=== PATIENT | female | born 1960 | race Caucasian/White ===

== ENCOUNTER 2017-09-30 17:44 | Emergency (ER) | payer BC, OTHER ==
--- NOTE | 2017-09-30 18:11 | EDM.PDOC ---
ED HPI GENERAL MEDICAL PROBLEM - General Chief Complaint: Eye Problems Stated Complaint: ALLERGIC REACTION Time Seen by Provider: 09/30/17 18:10 Source of Information: Reports: Patient - History of Present Illness INITIAL COMMENTS - FREE TEXT/NARRATIVE: Patient is here for evaluation of discharge from both eyes. She states that today she was preparing supper and had been handling raw shrimp that had spices and onions. She did rub her eyes and states that she had some significant irritation and discharge after this. She did take a Zyrtec and it improved mildly. She denies any loss or change in vision. Denies any throat tightness or dyspnea. Patient has no known allergies to any of these things previously and does eat them frequently. - Related Data Allergies Allergy/AdvReac Type Severity Reaction Status Date / Time penicillin G Allergy Cannot Verified 09/30/17 17:55 Remember Home Meds: Home Meds Olopatadine [Patanol 0.1% Ophth Soln] 1 drop EYEBOTH BID PRN #1 bottle 09/30/17 [Rx] Past Medical History HEENT History: Reports: Allergic Rhinitis, Impaired Vision [employer] History: Reports: - Past Surgical History Female Surgical History: Reports: Hysterectomy Musculoskeletal Surgical History: Reports: Other (See Below) Other Musculoskeletal Surgeries/Procedures:: carpal tunnel bilateral Social & Family History - Tobacco Use Smoking Status *Q: Never Smoker Second Hand Smoke Exposure: No - Caffeine Use Caffeine Use: Reports: None - Recreational Drug Use Recreational Drug Use: No ED ROS GENERAL - Review of Systems Review Of Systems: See Below Constitutional: Reports: No Symptoms HEENT: Reports: Eye Discharge, Eye Pain, Glasses. Denies: Throat Pain, Throat Swelling Respiratory: Reports: No Symptoms Cardiovascular: Reports: No Symptoms Skin: Reports: No Symptoms ED EXAM GENERAL W FULL EYE - Physical Exam Exam: See Below Exam Limited By: No Limitations General Appearance: Alert, WD/WN Eye Exam: Bilateral Eye: Conjunctival Injection, PERRL, Other (Bilateral clear discharge. ) Visual Acuity (R) 20/: 25 Visual Acuity (L) 20/: 25 With Correction: No Eyelids: Bilateral: Erythema Conjunctiva & Sclera: Bilateral: Discharge (clear), Injected Cornea Exam: Bilateral: Normal Appearance Extraocular Movements: Bilateral: Intact Pupils: Normal Accommodation Ears: Normal External Exam, Normal TMs Throat/Mouth: Normal Inspection, Normal Oropharynx Course - Vital Signs Last Recorded V/S: Last Vital Signs Temp 98.4 F 09/30/17 17:49 Pulse 79 09/30/17 17:49 Resp 13 09/30/17 17:49 BP 159/87 H 09/30/17 17:49 Pulse Ox 98 09/30/17 17:49 - Re-Assessments/Exams Free Text/Narrative Re-Assessment/Exam: Bilateral eyes were irrigated with saline and ice packs applied, patient had significant improvement in her symptoms with this. Question if irritation versus allergic conjunctivitis. Will send her home with Patanol drops, she will also continue cool packs to eyes tonight. Advised patient if she should have any worsening symptoms or changes in vision that she will need to be reevaluated immediately. Follow up with her client experience specialist next week if not completely resolved. 09/30/17 19:18 Departure - Departure Time of Disposition: 19:11 Disposition: Home, Self-Care 01 Condition: Good Clinical Impression: Irritation of both eyes, Allergic conjunctivitis of both eyes - Discharge Information Prescriptions: Olopatadine [Patanol 0.1% Ophth Soln] 1 drop EYEBOTH BID PRN #1 bottle PRN Reason: Allergies Referrals: Toni Chau Jr, MD [Primary Care Provider] - Forms: ED Department Discharge
== END 2017-09-30 19:20 | disposition home or self-care (01) ==
LOC: JD.ED 17:44
DX: H10.13 Acute atopic conjunctivitis, bilateral (principal); Z88.0 Allergy status to penicillin
CPT/HCPCS: 99283

== ENCOUNTER 2023-09-24 17:03 | Emergency (ER) | payer OTHER ==
[2023-09-24] MEDS ORDERED: Metoclopramide 10 MG/2 ML SDV IVPUSH ONE (17:24)
[2023-09-24 17:53] LABS: BASOPHILS PERCENT AUTO 0.2 % (0.0-1.0); EOSINOPHILS PERCENT AUTO 0.1 % (0.0-6.0); HEMATOCRIT 37.5 % (37.0-47.0); HEMOGLOBIN 12.4 gm/dl (12.0-16.0); IMMATURE GRAN ABSOLUTE AUTO 0.07 K/mm3 (0.00-0.05); IMMATURE GRAN PERCENT AUTO 0.4 % (0.0-0.4); LYMPHOCYTES ABSOLUTE AUTO 1.5 K/mm3 (1.0-4.8); LYMPHOCYTES PERCENT AUTO 7.5 % (24.0-44.0); MEAN CORPUSCULAR HEMOGLOBIN 30.8 pg (28.0-32.0); MEAN CORPUSCULAR HGB CONC 33.1 g/dl (32.0-36.0); MEAN CORPUSCULAR VOLUME 93.1 fl (83.0-99.0); MEAN PLATELET VOLUME 9.4 fl (9.4-12.3); MONOCYTES ABSOLUTE AUTO 1.6 K/mm3 (0.0-0.8); MONOCYTES PERCENT AUTO 8.3 % (0.0-8.0); NEUTROPHILS ABSOLUTE AUTO 16.2 K/mm3 (1.8-7.7); NEUTROPHILS PERCENT AUTO 83.5 % (41.0-71.0); PLATELET COUNT,PLT 229 K/mm3 (150-400); RED BLOOD CELL COUNT 4.03 M/mm3 (4.10-5.30); WHITE BLOOD CELL COUNT,WBC 19.38 K/mm3 (3.9-11.3)
[2023-09-24 17:57] LABS: CORONAVIRUS COVID-19 NAA NEGATIVE (NEGATIVE); INFLUENZA A NAA NEGATIVE (NEGATIVE)
[2023-09-24] MEDS: Dextrose 5%-0.9% NaCl 1,000 ML IV SCH ×2 (18:09→21:04)
[2023-09-24 18:17] LABS: APPEARANCE,URINE SLT CLOUDY (Clear); BILIRUBIN,URINE 1+ (Negative); COLOR,URINE DARK YELLOW (Yellow); GLUCOSE,URINE NEGATIVE (Negative); KETONES,URINE TRACE (Negative); LEUKOCYTE ESTERASE,URINE TRACE (Negative); NITRITE,URINE POSITIVE (Negative); OCCULT BLOOD,URINE TRACE-INTACT (Negative); PROTEIN,URINE 1+ (Negative)
[2023-09-24 18:22] LABS: SLIDE REVIEW ABNORMAL SMEAR
[2023-09-24 18:23] LABS: A/G RATIO 0.6 (1-2); ALBUMIN 2.8 g/dl (3.4-5.0); ANION GAP 12.1 (5-15); BILIRUBIN TOTAL 2.1 mg/dL (0.2-1.0); BUN/CREATININE RATIO 17.5 (14-18); CALCIUM 8.9 mg/dL (8.5-10.1); CREATININE 0.8 mg/dL (0.55-1.02); EST CRCL DRUG DOSING (CG) 66.45 mL/min; MAGNESIUM 1.9 mg/dL (1.8-2.4); POTASSIUM,K 4.1 mEq/L (3.5-5.1); PROTEIN TOTAL,TP 7.7 g/dl (6.4-8.2); TSH 1.094 uIU/mL (0.358-3.74)
[2023-09-24 18:48] LABS: BACTERIA,URINE MANY /hpf (FEW); MUCUS,URINE FEW /hpf (FEW); RBC,URINE 0-5 /hpf (0-5); SQUAMOUS EPITHELIAL CELLS,UR 0-5 /hpf (0-5)
[2023-09-24 18:51] LABS: C-REACTIVE PROTEIN 27.4 mg/dL (<1.0)
[2023-09-24] MEDS ORDERED: Acetaminophen 325 MG Tab PO ONE (19:52)
[2023-09-24] MEDS ORDERED: cefTRIAXone 2 GM in Sodium Chloride 0.9% 100 ML IV ONE (19:56)
[2023-09-24] MEDS ORDERED: Dextrose 5%-0.9% NaCl 1,000 ML IV SCH (20:00)
[2023-09-24] MEDS ORDERED: Lactated Ringers 1,000 ML IV SCH (20:00)
[2023-09-24 20:05] LABS: GAMMA GLUTAMYL TRANSFERASE,GGT 159 U/L (5-55); LIPASE 10 U/L (16-77)
[2023-09-24] MEDS ORDERED: Sodium Chloride 0.9% 10 ML Syringe FLUSH ONE (20:10)
[2023-09-24] MEDS ORDERED: Iopamidol 612 MG/ML 100 ML Bottle IVPUSH ONE (20:10)
[2023-09-24] MEDS ORDERED: methylPREDNISolone Sodium Succinate 125 MG/2 ML SDV IVPUSH ONE (20:35)
== END 2023-09-24 23:20 | disposition home or self-care (01) ==
LOC: JD.ED 17:03
DX: J18.9 Pneumonia, unspecified organism (principal); Z88.0 Allergy status to penicillin; Z91.013 Allergy to seafood; Z79.899 Other long term (current) drug therapy
CPT/HCPCS: 0240U; 36415; 71045; 74177; 80053; 81001; 82977; 83605; 83690; 83735; 83880; 84443; 85025; 86140; 87040; 87086; 96361; 96365; 96375; 99285; A9270; J0696; J2765; J2930; J3490; J7042; Q9967; 99284